=== PATIENT | female | born 1985 | race African-American/Black ===

== ENCOUNTER 2016-05-24 01:44 | Emergency (ER) | payer SELFPAY ==
[~2016-05-24] VITALS: Ht 154.9 cm; Wt 87.6 kg
[~2016-05-24 01:44] MED LIST: MOTRIN800 MG PO
[2016-05-24 03:37] LABS: HEMATOCRIT 37.1 % (36.0-46.0); MCH 28.1 PG (29.0-34.0); MCHC 33.4 G/DL (30.0-36.0); MCV 83.9 FL (83-99); MEAN PLAT.VOLUME 10.9 uM^3 (9.5-12.4); PLATELET COUNT 237 K/uL (156-360); RBC DIS.WIDTH-CV 14.4 % (11.8-14.6); RBC DIS.WIDTH-SD 43.6 % (39-53); RED BLOOD COUNT 4.42 M/uL (3.80-5.20); WHITE BLOOD COUNT 6.5 K/uL (4.1-10.2)
[2016-05-24 03:50] LABS: CHLORIDE 106 mEq/L (99-109); POTASSIUM 3.6 mEq/L (3.7-5.4); SODIUM 136 mEq/L (136-147)
[2016-05-24 03:52] LABS: GLUCOSE 103 mg/dL (70-99)
[2016-05-24 03:53] LABS: ANION GAP 10 MEQ/L (2-14)
[2016-05-24 03:54] LABS: TOTAL BILIRUBIN 0.5 mg/dL (0.0-1.0)
[2016-05-24 03:56] LABS: ALKALINE PHOSPHATASE 68 IU/L (3-129); GFR ESTIMATE (CALCULATED) > 59 mL/min/
[2016-05-24 03:57] LABS: UREA NITROGEN (BUN) 3 mg/dL (9-23)
[2016-05-24 03:59] LABS: LIPASE 14 U/L (1.0-51.0)
[2016-05-24 04:05] LABS: QUANTITATIVE HCG < 4.0 MIU/ML
[2016-05-24 04:28] LABS: BILIRUBIN NEGATIVE; BLOOD NEGATIVE; COLOR YELLOW ((YELLOW)); GLUCOSE (STRIP) NEGATIVE; KETONES NEGATIVE; LEUKOCYTES NEGATIVE; NITRITE NEGATIVE; PROTEIN (STRIP) NEGATIVE; SPECIFIC GRAVITY 1.009 (1.000-1.030); UROBILINOGEN 0.2 MG/DL (0.2-1.0)
[2016-05-24 04:31] LABS: ADD MIUA? NO; UCUL ADDED? NO
[2016-05-24 06:14] VITALS: BP 93/52
== END 2016-05-24 06:18 | disposition home or self-care (01) ==
LOC: EME 01:44
PROVIDERS: Emergency Medicine
DX: R10.31 Right lower quadrant pain (principal)
CPT/HCPCS: 74177; 80053; 81003; 83690; 84702; 85027; 99281; 99284; J2270; J2405; J7030